=== PATIENT | male | born 1965 | race Caucasian/White ===

== ENCOUNTER 2018-05-09 08:25 | Emergency (ER) | payer OTHER ==
--- NOTE | 2018-05-09 10:03 | RAD ---
LEFT ANKLE 3 VIEWS: HISTORY: Injury, left ankle pain. FINDINGS/IMPRESSION: No fracture or dislocation is seen. The ankle mortise is maintained. POS: [facility]
[2018-05-09] MEDS ORDERED: HYDROcodone/Acetaminophen 5/325 mg Tablet ONE (10:08)
[2018-05-09] MEDS ORDERED: Acetaminophen 325 MG TAB ONE (10:09)
[2018-05-09] MEDS ORDERED: Ibuprofen 800 MG TAB ONE (10:09)
[2018-05-09] MEDS ORDERED: Cyclobenzaprine 10 MG TAB ONE (10:09)
--- NOTE | 2018-05-09 10:13 | RAD ---
PA CHEST AND RIGHT RIBS 5 VIEWS: HISTORY: Injury to right chest. FINDINGS: Lung johnson appear clear on the PA chest. No evidence of rib fracture identified. IMPRESSION: No evidence of acute right rib lesion. POS: [facility]
--- NOTE | 2018-05-09 10:17 | RAD ---
LEFT WRIST 3 VIEWS: HISTORY: Injury. Left wrist pain. 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 POS: [facility]
== END 2018-05-09 11:25 | disposition home or self-care (01) ==
LOC: MADERS 08:25
DX: S63.502A Unspecified sprain of left wrist, initial encounter (principal); S93.402A Sprain of unspecified ligament of left ankle, initial encounter; S20.211A Contusion of right front wall of thorax, initial encounter; J44.9 Chronic obstructive pulmonary disease, unspecified; I11.0 Hypertensive heart disease with heart failure; E11.9 Type 2 diabetes mellitus without complications; I50.9 Heart failure, unspecified; Z87.891 Personal history of nicotine dependence; Z79.899 Other long term (current) drug therapy; X58.XXXA Exposure to other specified factors, initial encounter

== ENCOUNTER 2020-02-21 12:13 | Emergency (ER) | payer OTHER ==
[2020-02-21 13:07] LABS: INR-International Normal Ratio 1.2; Prothrombin Time 15.5 sec (12.0-14.7)
[2020-02-21 13:08] LABS: PTT 27.6 sec (22.9-36.1)
[2020-02-21 13:18] LABS: ALT (SGPT) 18 U/L (8-55); AST (SGOT) 14 U/L (5-34); Albumin 3.3 g/dL (3.5-5.0); Alkaline Phosphatase 91 U/L (40-110); Anion Gap 16 mmol/L (10-20); BUN (Urea Nitrogen) 20 mg/dL (8.4-25.7); Bilirubin, Total 0.6 mg/dL (0.2-1.2); Calc. Creatinine Clearance 0 mL/min (70-130); Calcium 9.5 mg/dL (7.8-10.44); Carbon Dioxide 35 mmol/L (22-29); Chloride 95 mmol/L (98-107); Estimated GFR-MDRD Greater than 90; Globulin 3.4 g/dL (2.4-3.5); Glucose 95 mg/dL (70-105); Potassium 4.9 mmol/L (3.5-5.1); Protein, Total 6.7 g/dL (6.0-8.3); Sodium 141 mmol/L (136-145)
[2020-02-21 13:21] LABS: #Basophils 0.1 thou/uL (0.0-0.2); #Eosinphils 0.3 thou/uL (0.0-0.7); #Lymphocytes 1.6 thou/uL (1.20-3.40); %Basophils 1.1 % (0.0-1.0); %Eosinophils 2.4 % (0.0-10.0); %Monocytes 7.8 % (0.0-10.0); %Neutrophils 76.7 % (42.0-75.0); Hemoglobin 15.3 g/dL (14.0-18.0); Mean Corpuscular HGB CONC 29.9 g/dL (32.0-36.0); Mean Corpuscular Hemoglobin 28.5 pg (27.0-31.0); Mean Corpuscular Volume 95.2 fL (78.0-98.0); Mean Platelet Volume 7.3 fL (7.4-10.4); Platelet Count 267 thou/uL (130-400); RBC Distribution Width 16.2 % (11.5-14.5); Red Blood Cell (RBC) Count 5.39 mill/uL (4.70-6.10); White Blood Cell (WBC) Count 13.1 thou/uL (4.8-10.8)
--- NOTE | 2020-02-21 15:46 | RAD ---
RIGHT FEMUR FOUR VIEWS: 02/21/20 INDICATION: History of fall with right hip pain. FINDINGS: No definite acute fracture is evident. Image detail is slightly limited due to patient's bony habitus . No radiopaque foreign body is noted. IMPRESSION: No definite acute osseous abnormality. POS: [facility]
== END 2020-02-21 14:20 | disposition home or self-care (01) ==
LOC: MADERS 12:13
DX: S70.11XA Contusion of right thigh, initial encounter (principal); S40.022A Contusion of left upper arm, initial encounter; I50.9 Heart failure, unspecified; I48.91 Unspecified atrial fibrillation; E11.9 Type 2 diabetes mellitus without complications; J44.9 Chronic obstructive pulmonary disease, unspecified; Z87.891 Personal history of nicotine dependence; Z79.82 Long term (current) use of aspirin; Z79.899 Other long term (current) drug therapy; W10.9XXA Fall (on) (from) unspecified stairs and steps, initial encounter
CPT/HCPCS: 36415; 80053; 85025; 85610; 85730

== ENCOUNTER 2020-06-11 05:22 | Emergency (ER) | payer OTHER ==
[2020-06-11] MEDS ORDERED: HYDROcodone/Acetaminophen 5/325 mg Tablet ONE (06:04)
[2020-06-11] MEDS ORDERED: Acetaminophen 325 MG TAB ONE (06:05)
--- NOTE | 2020-06-11 07:38 | RAD ---
EXAM: 3 views of the left knee HISTORY: Knee pain COMPARISON: None FINDINGS: No knee effusion is seen. There is no evidence of acute fracture or dislocation. No signifi cant degenerative changes are seen. Moderate diffuse soft tissue swelling is present. IMPRESSION: No evidence of acute osseous abnormality.
--- NOTE | 2020-06-11 07:50 | RAD ---
Left foot 3 views HISTORY: Injury. FINDINGS: Joint spaces are preserved. Minimal osteophytosis. Lisfranc joint alignment is anatomic. Plantar arch is maintained. No acute fracture or dislocation. IMPRESSION : No acute osseous abnormalities are demonstrated.
--- NOTE | 2020-06-11 07:51 | RAD ---
Right foot 3 views HISTORY: Injury. FINDINGS: Joint spaces are preserved. Minimal osteophytosis. Lisfranc joint alignment is anatomic. Plantar arch is maintained. No acute fracture or dislocation. IMPRESSION : No acute osseous abnormalities are demonstrated.
== END 2020-06-11 10:00 | disposition home or self-care (01) ==
LOC: MADERS 05:22
DX: S93.602A Unspecified sprain of left foot, initial encounter (principal); S93.601A Unspecified sprain of right foot, initial encounter; S83.92XA Sprain of unspecified site of left knee, initial encounter; I48.91 Unspecified atrial fibrillation; I11.0 Hypertensive heart disease with heart failure; I50.9 Heart failure, unspecified; E11.9 Type 2 diabetes mellitus without complications; J44.9 Chronic obstructive pulmonary disease, unspecified; Z87.891 Personal history of nicotine dependence; Z79.82 Long term (current) use of aspirin; Z79.899 Other long term (current) drug therapy; Z79.01 Long term (current) use of anticoagulants; W18.30XA Fall on same level, unspecified, initial encounter

== ENCOUNTER 2020-12-11 02:34 | Emergency (ER) | payer OTHER ==
[2020-12-11 03:22] LABS: #Basophils 0.1 thou/uL (0.0-0.2); #Eosinphils 0.2 thou/uL (0.0-0.7); #Lymphocytes 1.6 thou/uL (1.20-3.40); #Monocytes 0.7 thou/uL (0.11-0.59); #Neutrophils 7.1 thou/uL (1.40-6.50); %Basophils 0.8 % (0.0-1.0); %Eosinophils 2.1 % (0.0-10.0); %Lymphocytes 16.5 % (21.0-51.0); %Neutrophils 73.7 % (42.0-75.0); Hemoglobin 14.9 g/dL (14.0-18.0); Mean Corpuscular HGB CONC 31.1 g/dL (32.0-36.0); Mean Corpuscular Hemoglobin 30.8 pg (27.0-31.0); Mean Corpuscular Volume 98.9 fL (78.0-98.0); Mean Platelet Volume 7.5 fL (7.4-10.4); Platelet Count 206 thou/uL (130-400); RBC Distribution Width 14.6 % (11.5-14.5); Red Blood Cell (RBC) Count 4.82 mill/uL (4.70-6.10); White Blood Cell (WBC) Count 9.6 thou/uL (4.8-10.8)
[2020-12-11 03:27] LABS: INR-International Normal Ratio 2.1; Prothrombin Time 24.2 sec (12.0-14.7)
== END 2020-12-11 05:25 | disposition home or self-care (01) ==
LOC: MADERS 02:34
DX: S06.0X0A Concussion without loss of consciousness, initial encounter (principal); E66.01 Morbid (severe) obesity due to excess calories; I50.9 Heart failure, unspecified; I48.91 Unspecified atrial fibrillation; I48.92 Unspecified atrial flutter; J44.9 Chronic obstructive pulmonary disease, unspecified; E11.9 Type 2 diabetes mellitus without complications; Z87.891 Personal history of nicotine dependence; Z79.01 Long term (current) use of anticoagulants; Z79.82 Long term (current) use of aspirin; Z79.899 Other long term (current) drug therapy; W06.XXXA Fall from bed, initial encounter
CPT/HCPCS: 85025; 85610; 99284